=== PATIENT | male | born 1950 | race Caucasian/White ===

== ENCOUNTER 2017-01-20 11:28 | Emergency (ER) | payer MEDICARE, OTHER ==
[~2017-01-20] VITALS: Ht 180.3 cm; Wt 80.7 kg
[2017-01-20 12:08] VITALS: BP 153/90
== END 2017-01-20 12:51 | disposition home or self-care (01) ==
LOC: ER 12:19
DX: K64.4 Residual hemorrhoidal skin tags (principal); K64.8 Other hemorrhoids; J44.9 Chronic obstructive pulmonary disease, unspecified

== ENCOUNTER 2017-01-22 05:39 | Emergency (ER) | payer MEDICARE, OTHER ==
[~2017-01-22] VITALS: Ht 180.3 cm; Wt 78.9 kg
[2017-01-22 07:38] VITALS: BP 127/74
== END 2017-01-22 07:51 | disposition home or self-care (01) ==
LOC: ER 05:46
DX: K64.8 Other hemorrhoids (principal); J44.9 Chronic obstructive pulmonary disease, unspecified